=== PATIENT | female | born 1960 | race American Indian/Alaskan Native ===

== ENCOUNTER → 2017-05-12 | Outpatient (CLI) | payer BC ==
[~2017-05-12] MED LIST: AMLODIPINE PO; CITALOPRAM PO; HYDROCODONE PO
--- NOTE | 2017-05-14 15:41 | Diagnostic Imaging Report ---
Bilateral screening mammogram 2D views with tomosynthesis The current study was also evaluated with a Computer Aided Detection (CAD) system. INDICATION: Screening. No current complaints stated on the questionnaire. COMPARISON: 09/29/2011. FINDINGS: The breasts are composed of scattered fibroglandular densities. No mass, architectural distortion, or suspicious cluster of calcifications noted. Allowing for technique and positional differences, no suspicious change is seen. IMPRESSION: No significant change. ACR BI-RADS Category 2: Benign findings. Result letter will be mailed to the patient. Note: At least 10% of breast cancer is not imaged by mammography. Dictated by: Dictated on workstation # [id number]
== END ==
LOC: RAD 13:57
PROVIDERS: ATTEND Family Medicine
DX: Z12.31 Encounter for screening mammogram for malignant neoplasm of breast (principal)
CPT/HCPCS: 77067

== ENCOUNTER → 2018-07-30 | Outpatient (CLI) | payer BC ==
--- NOTE | 2018-07-30 12:12 | Diagnostic Imaging Report ---
INDICATION: Digital mammogram bilateral screening with 3D tomosynthesis. This study was compared to the prior exams of 05/12/2017 and 09/29/2011. At this time, there are no current complaints. The current study was also evaluated with a Computer Aided Detection (CAD) system. 3-D tomosynthesis was also performed and reviewed. FINDINGS: There are scattered fibroglandular densities in both breasts which could obscure a lesion. Overall, there does not appear to have been any significant change when compared to the prior exam. No primary or secondary sign of malignancy is noted. 3D tomographic images fail to show any sign of malignancy. IMPRESSION: There is no radiographic evidence for malignancy. ACR BI-RADS Category 1: Negative. Result letter will be mailed to the patient. Note: At least 10% of breast cancer is not imaged by mammography. Dictated by: Dictated on workstation # [id number]
== END ==
LOC: RAD 09:42
PROVIDERS: ATTEND Family Medicine
DX: Z12.31 Encounter for screening mammogram for malignant neoplasm of breast (principal)
CPT/HCPCS: 77067

== ENCOUNTER 2019-03-25 13:37 | Emergency (ER) | payer BC ==
[~2019-03-25] VITALS: Ht 157.5 cm; Wt 91.8 kg
[2019-03-25] MEDS ORDERED: HYDROcodone/APAP 7.5 MG/325 MG (LORTAB, LORCET PLUS) TABLET PO ONE (14:00)
--- NOTE | 2019-03-25 14:14 | ED Upper Extremity ---
General Chief Complaint: Upper Extremity Stated Complaint: R ARM INJ Nursing Triage Note: PATIENT STATES THAT SHE TRIPPED AT WORK AND FELL OUTSIDE LANDING ON HER RIGHT WRIST. Nursing Sepsis Screen: No Definite Risk Source: patient Exam Limitations: no limitations History of Present Illness Date Seen by Provider: Mar 25, 2019 Time Seen by Provider: 13:50 Initial Comments 58-year-old female who presents to emergency room with complaints of right wrist pain after tripping and falling over a floor grate at work landing on her left wrist. She denies other injuries from the fall. Onset: just prior to arrival Pain/Injury Location: right wrist Method of Injury: fell Modifying Factors: Worse With Movement Allergies and Home Medications Allergies Coded Allergies: No Allergy Information Available (Unverified , 06/07/14) Home Medications [Amlodipine] , PO DAILY Prescribed by: ADELFO WATERS on 06/07/14 1646 [Citalopram] , PO DAILY Prescribed by: ADELFO WATERS on 06/07/14 1646 [Hydrocodone] , PO BID PRN for PAIN Prescribed by: ADELFO WATERS on 06/07/14 1647 Patient Home Medication List Home Medication List Reviewed: Yes Review of Systems Constitutional: see HPI; No chills, No fever Musculoskeletal: see HPI, joint pain (right wrist) All Other Systems Reviewed Negative Unless Noted: Yes Past Xsgrxoc-Byhqoj-Zdizwa Hx Past Med/Social Hx: Reviewed Nursing Past Med/Soc Hx Patient Social History Alcohol Use: Denies Use Recreational Drug Use: No Smoking Status: Never a Smoker 2nd Hand Smoke Exposure: No Recent Foreign Travel: No Contact w/Someone Who Travel: No Recent Infectious Disease Expo: No Immunizations Up To Date Tetanus Booster (TDap): More than 5yrs Past Medical History Surgeries: Yes Appendectomy, Hysterectomy Respiratory: No Cardiac: No Neurological: No Reproductive Disorders: No Female Reproductive Disorders: Endometriosis Sexually Transmitted Disease: No HIV/AIDS: No Gastrointestinal: No Musculoskeletal: Yes (sciatic nerve pain) Arthritis Endocrine: No Cataract Loss of Vision: Denies Hearing Impairment: Denies Cancer: No Psychosocial: No Integumentary: No Blood Disorders: No Adverse Reaction/Blood Tranf: No Family Medical History Reviewed Nursing Family Hx Colon cancer 19 MOTHER ( OF CANCER), Physical Exam Vital Signs Vital Signs - First Documented 03/25/19 13:45 Temp 98.2 Pulse 70 Resp 18 B/P (MAP) 118/79 (92) Pulse Ox 95 Capillary Refill : Less Than 3 Seconds Height, Weight, BMI Height: 5'2.00" Weight: 202lbs. 5.0oz. 91.376373hz; BMI Method:Actual General Appearance: WD/WN, no apparent distress Cardiovascular: normal peripheral pulses, regular rate, rhythm, no edema, no gallop, no JVD, no murmur Respiratory: chest non-tender, lungs clear, normal breath sounds, no respiratory distress, no accessory muscle use Wrist: Yes bone tenderness (right wrist), Yes ecchymosis, Yes pain, Yes soft tissue tenderness, Yes swelling Neurologic/Tendon: normal sensation, normal motor functions, normal tendon functions, responds to pain, no evidence tendon injury, other (normal capillary refill ) Neurologic/Psychiatric: alert, normal mood/affect, oriented x 3 Skin: normal color, warm/dry Progress/Results/Core Measures Results/Orders My Orders Orders - CELIO DUBOSE Wrist, Right, 3 Views Or More (03/25/19 13:54) Hydrocodone/Apap 7.5/325 Tab (Lortab 7. (03/25/19 14:00) Medications Given in ED Current Medications Medications Dose Ordered Sig/Chely Route Start Time Stop Time Status Last Admin Dose Admin Acetaminophen/ Hydrocodone Bitart 1 ea ONCE ONCE PO 03/25/19 14:00 03/25/19 14:01 DC 03/25/19 14:07 1 EA Vital Signs/I&O 03/25/19 13:45 Temp 98.2 Pulse 70 Resp 18 B/P (MAP) 118/79 (92) Pulse Ox 95 Blood Pressure Mean: 92 Progress Progress Note : Time: 15:00 Progress Note I have seen and evaluated the patient. I informed her of her imaging findings. Case was discussed with Dr. Murillo and he recommends placing the patient in a sugar tong splint and having her follow up with his office Thursday for further evaluation and scheduling of surgery. The patient was placed and requested splint and she remained neurovascularly intact. She agrees with plan of care, plans for discharge, return precautions were given. Departure Impression Primary Impression: comminuted fracture of distal radius Disposition: HOME, SELF-CARE Condition: Stable/Unchanged Departure-Patient Inst. Decision time for Depature: 15:17 Referrals: GELLENDER,NEFTALI A DO (PCP/Family) Primary Care Physician SHERI MURILLO MD Patient Instructions: Wrist Fracture (DC) Add. Discharge Instructions: Take medication as directed. Wear the splint until you follow up with Dr. Murillo for further instructions or evaluation. Return back to the emergency room for worsening symptoms or concerns as needed. Ice to the sore areas at 20 minute intervals. You may use additional Tylenol for pain relief. Do not exceed your daily limit of Tylenol 4000 mg. All discharge instructions reviewed with patient and/or family. Voiced understanding. Scripts Hydrocodone/Acetaminophen (Hydrocodone-Acetamin 7.5-325) 1 Each Tablet 1 TAB PO Q4H for PAIN-MODERATE for 7 Days, #20 TAB Prov: CELIO DUBOSE 03/25/19 CELIO DUBOSE Mar 25, 2019 14:14
--- NOTE | 2019-03-25 14:22 | Diagnostic Imaging Report ---
Indication: Fall with right wrist pain. Time of exam: 2:02 PM Three views right wrist demonstrate a comminuted fracture of the distal radius. Fracture lines do extend into the articular surface of the radiocarpal joint. There is some volar displacement of dominant distal radius fracture fragment. Distal ulna appears to be intact. Carpus and visualized metacarpals are intact. Impression: Comminuted intra-articular distal radius fracture. Dictated by: Dictated on workstation # [id number]
[2019-03-25] MEDS ORDERED: HYDR-3816 PO (15:22)
[2019-03-25 15:30] VITALS: BP 118/79
== END 2019-03-25 15:36 | disposition home or self-care (01) ==
LOC: EDUNIT# 13:37 → ER 13:38
DX: S52.591A Other fractures of lower end of right radius, initial encounter for closed fracture (principal); Z90.49 Acquired absence of other specified parts of digestive tract; Z90.710 Acquired absence of both cervix and uterus; Z80.0 Family history of malignant neoplasm of digestive organs; W01.0XXA Fall on same level from slipping, tripping and stumbling without subsequent striking against object, initial encounter; Y92.59 Other trade areas as the place of occurrence of the external cause; Y99.0 Civilian activity done for income or pay
CPT/HCPCS: 73110

== ENCOUNTER → 2019-07-15 | Outpatient (CLI) | payer BC ==
[~2019-07-15] MED LIST changes: +HYDR-3816 PO
--- NOTE | 2019-07-15 09:29 | Diagnostic Imaging Report ---
PROCEDURE: MRI lumbar spine. TECHNIQUE: Multiplanar, multisequence MRI of the lumbar spine was performed without contrast. INDICATION: Back pain with extension down the left leg. COMPARISON: 07/12/2015 FINDINGS: For the purposes of this exam, last well-formed disc space is denoted the L5-S1 level. Evaluation of static alignment demonstrates mild levoscoliotic deformity at the L3 level. AP static alignment is maintained. There is no significant anterolisthesis or retrolisthesis. There is no evidence of jumped facets. Vertebral body heights are maintained. There is no evidence of acute fracture. There is mild Modic type I change involving the adjacent endplates at the L2-L3 and L3-L4 levels. Otherwise, marrow signal is unremarkable. Note is also made of mild multilevel intervertebral disc height loss with anterior and posterior disc bulges. Visualized portions of distal cord are unremarkable. Conus terminates at approximately the L1 level. No abnormal intrathecal filling defects are seen. Pre-and paravertebral soft tissue structures are unremarkable. Axial images demonstrate the following: T12-L1: There is mild broad-based posterior disc bulge, eccentric to the left. There is also mild bilateral facet arthropathy. As a result, there is minimal narrowing of spinal canal and left neural foramen. Right neural foramen is unremarkable. L1-L2: There is minimal broad-based posterior disc bulge. This results in minimal flattening of anterior thecal sac. There is otherwise no significant spinal canal or neural foraminal stenosis. L2-L3: There is mild broad-based posterior disc bulge and bilateral ligamentum flavum laxity and facet arthropathy. As a result, there is mild narrowing of spinal canal and bilateral neural foramen. L3-L4: There is broad-based posterior disc bulge, eccentric to the right. There is also bilateral ligamentum flavum laxity and facet arthropathy. As a result, there is moderate narrowing of the spinal canal and moderate asymmetric stenosis of the right neural foramen and right lateral recess. There is mild narrowing of the left neural foramen and left lateral recess as well. L4-L5: There is fairly broad-based right paracentric posterior disc protrusion superimposed on broad-based posterior disc bulge. There is also exuberant bilateral facet arthropathy. As a result, there is severe spinal canal stenosis. Thecal sac is narrowed to approximately 6 mm in AP dimension. There is also asymmetric stenosis of the right lateral recess and moderate narrowing of the right neural foramen. There is mild narrowing of the left neural foramen as well. L5-S1: Small posterior disc bulge is noted eccentric to the left. There is also asymmetric advanced left facet arthropathy. As a result, there is asymmetric uyld-oy-oibjhypl narrowing of the left neural foramen. Right neural foramen and spinal canal, however otherwise unremarkable. IMPRESSION: 1. Multilevel degenerative changes of the lumbar spine, greatest at the L3-L4 and L4-L5 levels. 2. No acute fracture or dislocation. Dictated by: Dictated on workstation # [id number]
== END ==
LOC: RAD 07:44
PROVIDERS: ATTEND Family Medicine
DX: M47.816 Spondylosis without myelopathy or radiculopathy, lumbar region (principal)
CPT/HCPCS: 72148

== ENCOUNTER → 2020-07-23 | Outpatient (CLI) | payer BC ==
[~2020-07-23] MED LIST changes: +HYDR-34 PO; -HYDR-3816 PO
--- NOTE | 2020-07-23 15:46 | Diagnostic Imaging Report ---
PROCEDURE: MRI right joint upper extremity without contrast. TECHNIQUE: Multiplanar, multisequence non contrast-enhanced MRI of the right upper extremity was accomplished. INDICATION: Right shoulder pain for three weeks. No known injury. COMPARISON: Radiographs from 05/29/2011. FINDINGS: No acute fracture is seen in the right shoulder. Alignment is normal. There is moderate fluid in the subacromial and subdeltoid bursa. No joint effusion is seen. There are moderate degenerative changes in the acromioclavicular joint. There is a full-thickness or near full-thickness tear of the anterior supraspinatus tendon measuring 1 cm with approximately 5 mm of retraction medially. There is tendinosis in the remainder of the supraspinatus tendon. The infraspinatus tendon demonstrates low-grade partial-thickness tearing with medial intrasubstance extension as well as mild tendinosis. The teres minor tendon is intact. The subscapularis tendon appears intact. There is no muscular atrophy. The long head of the biceps tendon is normal in course and signal. The glenoid labrum is suboptimally evaluated without intra-articular contrast but there appears to be degeneration superiorly. No large para-labral cyst is seen. The acromion has a curved undersurface without hooking. The coracoclavicular and coracoacromial ligaments are intact. Soft tissues about the right shoulder demonstrate no acute abnormality. IMPRESSION: 1. Small full-thickness or near full-thickness tear of the anterior supraspinatus tendon. Low-grade partial-thickness tearing of the infraspinatus tendon. No muscular atrophy is seen. 2. Fluid in the subacromial and subdeltoid bursa may be a bursitis or reactive to the rotator cuff injury. 3. Degenerative changes in the right acromioclavicular joint. Dictated by: Dictated on workstation # [id number]
== END ==
LOC: RAD 14:00
PROVIDERS: ATTEND Family Medicine
DX: S46.811A Strain of other muscles, fascia and tendons at shoulder and upper arm level, right arm, initial encounter (principal); M19.011 Primary osteoarthritis, right shoulder; X58.XXXA Exposure to other specified factors, initial encounter
CPT/HCPCS: 73221

== ENCOUNTER 2022-01-30 07:47 | Outpatient (CLI) | payer BC, OTHER ==
[~2022-01-30] VITALS: Ht 157.5 cm; Wt 75.0 kg
[2022-02-04] MEDS ORDERED: GBPN600T PO (09:45)
[2022-02-04] MEDS ORDERED: AMLO-250 PO (09:45)
[2022-02-04] MEDS ORDERED: LOSA50TA63 PO (09:45)
[2022-02-04] MEDS ORDERED: CELE-63 PO (09:45)
== END 2022-02-04 10:02 | disposition home or self-care (01) ==
LOC: PREOP 07:47
PROVIDERS: ATTEND Specialist
DX: Z01.818 Encounter for other preprocedural examination (principal)

== ENCOUNTER 2022-02-07 08:09 | Day surgery (SDC) | payer BC, OTHER ==
[~2022-02-07] VITALS: Ht 157.5 cm; Wt 75.0 kg
[~2022-02-07 08:09] MED LIST changes: +AMLO-250 PO; +CELE-63 PO; +GBPN600T PO; +LOSA50TA63 PO
[2022-02-07] MEDS ORDERED: TIMOLOL MALEATE 0.5% 5 ML (TIMOPTIC) BTL OU PRN (08:45)
[2022-02-07] MEDS ORDERED: LIDOCAINE PF 1% 2 ML VIAL IR PRN (08:45)
[2022-02-07] MEDS ORDERED: MOXIFLOXACIN OPHTH SOLN 5 MG/ML 0.3 ML SYRINGE OP ONE (08:45)
[2022-02-07] MEDS ORDERED: POVIDONE (BETADINE) OPHTH SOLN 5% 30 ML OP ONE (08:45)
[2022-02-07] MEDS: TETRACAINE 0.5% OPHTH SOLN 4 ML BTL (SINGLE DOSE ONLY) OU PRN ×4 (08:46→09:02)
[2022-02-07] MEDS ORDERED: MIDAZOLAM 2 MG/2 ML (VERSED) VIAL ONE (08:47)
[2022-02-07] MEDS: TROPICAMIDE 1% OPH SOLN (MYDRIACYL) 15 ML BTL OP SCH ×3 (08:52→09:02)
[2022-02-07] MEDS: PHENYLEPHRINE 10% OPHTH (NEO-SYN) 5 ML BTL OU SCH ×3 (08:52→09:02)
[2022-02-07 08:53] VITALS: BP 153/76
--- NOTE | 2022-02-07 09:31 | Ophthalmologist Pre-Op Note ---
Pre-Operative Progress Note H&P Reviewed The H&P was reviewed, patient examined and no changes noted. Date H&P Reviewed: Feb 07, 2022 Time H&P Reviewed: 09:31 Pre-Op Dx Cataract, Right Eye PARVEEN MERCHANT MD Feb 07, 2022 09:31
--- NOTE | 2022-02-07 09:54 | Ophthalmology Operative Report ---
Cataract removal/placement IOL PREOPERATIVE DIAGNOSIS: Cataract Right Eye POSTOPERATIVE DIAGNOSIS: Cataract Right Eye PROCEDURE: Cataract removal and placement of posterior chamber implant, right eye SURGEON: Guzman Merchant ANESTHESIA: Topical with sedation COMPLICATIONS: None ESTIMATED BLOOD LOSS: Minimal DESCRIPTION OF PROCEDURE: After proper informed consent was obtained, the patient, a 61 female, was taken to the Operating Room and the right eye was anesthetized with tetracaine. The right eye was then prepped and draped in the usual manner. A wire lid speculum was placed. A paracentesis was made at the left hand position. Preservative free lidocaine was injected into the anterior chamber followed by viscoelastic. A clear corneal incision was made in the temporal position. A capsulorrhexis was preformed and the central nuclear and cortical material were removed. The posterior capsule was polished and Jeffrey 17.0 AU00T0 IOL was placed into the capsular bag. The residual viscoelastic was aspirated and balanced saline solution was injected into the anterior chamber. Moxifloxacin was injected into the anterior chamber. The wound was checked and found to be water tight. The patient tolerated the procedure well without complications. GUZMAN MERCHANT MD Feb 07, 2022 09:54
[2022-02-07 09:55] VITALS: BP 153/76
[2022-02-07] MEDS ORDERED: acetaZOLAMIDE ER 500 MG CAP (DIAMOX SEQUELS) PO ONE (11:00)
--- NOTE | 2022-02-07 13:19 | Anesthesia-General Post-Op ---
MAC Patient Condition Mental Status/LOC: Same as Preop Cardiovascular: Satisfactory Nausea/Vomiting: Absent Respiratory: Satisfactory Pain: Controlled Complications: Absent Post Op Complications Complications None Follow Up Care/Instructions Patient Instructions None needed. Anesthesiology Discharge Order Discharge Order Patient is doing well, no complaints, stable vital signs, no apparent adverse anesthesia problems. No complications reported per nursing. YIN VAZQUEZ CRNA Feb 07, 2022 13:19
== END 2022-02-07 10:30 | disposition home or self-care (01) ==
LOC: SDC 08:09
PROVIDERS: ATTEND Specialist
DX: H25.9 Unspecified age-related cataract (principal); F17.200 Nicotine dependence, unspecified, uncomplicated

== ENCOUNTER 2022-03-03 09:04 | Day surgery (SDC) | payer OTHER ==
[~2022-03-03] VITALS: Ht 157.5 cm; Wt 75.0 kg
[2022-03-03] MEDS: TETRACAINE 0.5% OPHTH SOLN 4 ML BTL (SINGLE DOSE ONLY) OU PRN ×3 (09:10→09:26)
[2022-03-03] MEDS ORDERED: MIDAZOLAM 2 MG/2 ML (VERSED) VIAL ONE (09:12)
[2022-03-03] MEDS ORDERED: LIDOCAINE PF 1% 2 ML VIAL IR PRN (09:15)
[2022-03-03] MEDS ORDERED: TIMOLOL MALEATE 0.5% 5 ML (TIMOPTIC) BTL OU PRN (09:15)
[2022-03-03] MEDS ORDERED: POVIDONE (BETADINE) OPHTH SOLN 5% 30 ML OP ONE (09:15)
[2022-03-03] MEDS ORDERED: MOXIFLOXACIN OPHTH SOLN 5 MG/ML 0.3 ML SYRINGE OP ONE (09:15)
[2022-03-03] MEDS: TROPICAMIDE 1% OPH SOLN (MYDRIACYL) 15 ML BTL OP SCH ×3 (09:16→09:26)
[2022-03-03] MEDS: PHENYLEPHRINE 10% OPHTH (NEO-SYN) 5 ML BTL OU SCH ×3 (09:16→09:26)
[2022-03-03 09:22] VITALS: BP 146/71
--- NOTE | 2022-03-03 09:54 | Ophthalmologist Pre-Op Note ---
Pre-Operative Progress Note H&P Reviewed The H&P was reviewed, patient examined and no changes noted. Date H&P Reviewed: March 03, 2022 Time H&P Reviewed: 09:54 Pre-Op Dx Cataract, Left Eye PARVEEN MERCHANT MD March 03, 2022 09:54
--- NOTE | 2022-03-03 10:19 | Ophthalmology Operative Report ---
Cataract removal/placement IOL PREOPERATIVE DIAGNOSIS: Cataract Left Eye POSTOPERATIVE DIAGNOSIS: Cataract Left Eye PROCEDURE: Cataract removal and placement of posterior chamber implant, left eye SURGEON: Guzman Merchant ANESTHESIA: Topical with sedation COMPLICATIONS: None ESTIMATED BLOOD LOSS: Minimal DESCRIPTION OF PROCEDURE: After proper informed consent was obtained, the patient, a 61 female, was taken to the Operating Room and the left eye was anesthetized with tetracaine. The left eye was then prepped and draped in the usual manner. A wire lid speculum was placed. A paracentesis was made at the left hand position. Preservative free lidocaine was injected into the anterior chamber followed by viscoelastic. A clear corneal incision was made in the temporal position. A capsulorrhexis was preformed and the central nuclear and cortical material were removed. The posterior capsule was polished and an Jeffrey 16.5 AU00T0 was placed into the capsular bag. The residual viscoelastic was aspirated and balanced saline solution was injected into the anterior chamber. Moxifloxacin was injected into the anterior chamber. The wound was checked and found to be water tight. The patient tolerated the procedure well without complications. GUZMAN MERCHANT MD March 03, 2022 10:19
[2022-03-03 10:23] VITALS: BP 119/76
[2022-03-03] MEDS ORDERED: acetaZOLAMIDE ER 500 MG CAP (DIAMOX SEQUELS) PO ONE (10:30)
--- NOTE | 2022-03-03 13:39 | Anesthesia-General Post-Op ---
MAC Patient Condition Mental Status/LOC: Same as Preop Cardiovascular: Satisfactory Nausea/Vomiting: Absent Respiratory: Satisfactory Pain: Controlled Complications: Absent Post Op Complications Complications None Follow Up Care/Instructions Patient Instructions None needed. Anesthesiology Discharge Order Discharge Order Patient is doing well, no complaints, stable vital signs, no apparent adverse anesthesia problems. No complications reported per nursing. HALLIE JUSTICE CRNA March 03, 2022 13:39
== END 2022-03-03 10:25 | disposition home or self-care (01) ==
LOC: SDC 09:04
PROVIDERS: ATTEND Specialist
DX: H25.9 Unspecified age-related cataract (principal); F17.200 Nicotine dependence, unspecified, uncomplicated

== ENCOUNTER → 2022-07-24 | Outpatient (CLI) | payer OTHER ==
[2022-07-24 13:59] LABS: HEMATOCRIT 38 % (35-52); HEMOGLOBIN 13.4 g/dL (11.5-16.0); MEAN CORPUSCULAR HEMOGLOBIN 33 pg (25-34); MEAN CORPUSCULAR HGB CONC 35 g/dL (32-36); MEAN CORPUSCULAR VOLUME 94 fL (80-99); MEAN PLATELET VOLUME 9.4 fL (9.0-12.2); PLATELET COUNT 307 10^3/uL (130-400); WHITE BLOOD COUNT 6.7 10^3/uL (4.3-11.0)
[2022-07-24 14:14] LABS: POTASSIUM 3.9 MMOL/L (3.6-5.0)
[2022-07-24 14:15] LABS: ALBUMIN 4.4 GM/DL (3.2-4.5)
[2022-07-24 14:16] LABS: CALCIUM 9.2 MG/DL (8.5-10.1)
[2022-07-24 14:17] LABS: TOTAL PROTEIN 7.4 GM/DL (6.4-8.2)
[2022-07-24 14:19] LABS: BILIRUBIN,TOTAL 0.4 MG/DL (0.1-1.0)
[2022-07-24 14:21] LABS: CREATININE SERUM 0.85 MG/DL (0.60-1.30)
== END ==
LOC: LAB 13:37
PROVIDERS: ATTEND Family Medicine
DX: Z01.89 Encounter for other specified special examinations (principal)
CPT/HCPCS: 36415; 80053; 80061; 85027

== ENCOUNTER → 2022-07-29 | Outpatient (CLI) | payer OTHER ==
--- NOTE | 2022-07-29 12:49 | Diagnostic Imaging Report ---
INDICATION: Routine screening. COMPARISON: 07/30/2018 and 05/12/2017. TECHNIQUE: 2D and 3D bilateral screening mammography was performed with CAD. FINDINGS: Scattered fibroglandular densities are identified bilaterally. The parenchymal pattern is stable. No dominant mass or malignant-appearing microcalcifications are seen. The axillae are unremarkable. IMPRESSION: No mammographic features suspicious for malignancy are identified. ACR BI-RADS Category 1: Negative. Result letter will be mailed to the patient. Note: At least 10% of breast cancer is not imaged by mammography. Dictated by: Dictated on workstation # [id number]
== END ==
LOC: RAD 11:15
PROVIDERS: ATTEND Family Medicine
DX: Z12.31 Encounter for screening mammogram for malignant neoplasm of breast (principal)
CPT/HCPCS: 77063; 77067

== ENCOUNTER → 2022-10-23 | Outpatient (CLI) | payer OTHER ==
--- NOTE | 2022-10-23 12:01 | Diagnostic Imaging Report ---
EXAMINATION: Left knee radiographs, 3 views. COMPARISON: None. HISTORY: 62-year-old female, left knee pain. FINDINGS: There is severe medial compartment joint space loss and moderate to severe patellofemoral compartment joint space loss. There are tricompartmental osteophytes. There is no knee joint effusion. There is no identified acute fracture. IMPRESSION: 1. Advanced predominantly medial and patellofemoral compartment osteoarthritis of the left knee without knee joint effusion. Dictated by: Dictated on workstation # [id number]
--- NOTE | 2022-10-23 17:54 | Diagnostic Imaging Report ---
HISTORY: Low back pain and left knee pain. COMPARISON: MRI from 07/15/2019. TECHNIQUE: Three views of the lumbar spine. FINDINGS: There is moderate left convex curvature of the lumbar spine centered at L3. There is no significant spondylolisthesis. There are severe degenerative changes at L5-S1 and moderate degenerative changes elsewhere in the lumbar spine, particularly L3-L4, L2-L3 and T12-L1. Vertebral body heights are preserved and no acute fracture is seen. There is marked facet arthropathy in the lower lumbar spine. Bilateral sacroiliac joints are patent. IMPRESSION: 1. Degenerative changes in the lumbar spine with no acute fracture seen. Dictated by: Dictated on workstation # [id number]
== END ==
LOC: RAD 11:21
PROVIDERS: ATTEND Family Medicine
DX: M47.816 Spondylosis without myelopathy or radiculopathy, lumbar region (principal); M17.12 Unilateral primary osteoarthritis, left knee
CPT/HCPCS: 72100; 73562